=== PATIENT | female | born 2000 | race Caucasian/White ===

== ENCOUNTER 2019-05-07 14:10 | Emergency (ER) | payer OTHER ==
--- NOTE | 2019-05-07 14:37 | ER ---
Nurse's Notes [facility] Name: Denise Andersen Age: 19 yrs Sex: Female : 2000 Arrival Date: 05/07/2019 Time: 14:14 Bed Waiting Private MD: Diagnosis: Presentation: 05/06 14:36 Note pt called mom, mom states it is not urgent enough for an er bill and it can wait dm5 until the physician's office is open. ED Course: 14:14 Patient arrived in ED. mr Administered Medications: No medications were administered Outcome: 14:37 Patient left the ED. dm5 Signatures: Temi Araiza RN RN dm5 Li Red mr
== END 2019-05-07 14:37 | disposition left against medical advice (07) ==
LOC: ER 14:10
DX: Z53.21 Procedure and treatment not carried out due to patient leaving prior to being seen by health care provider (principal)